=== PATIENT | female | born 1965 | race American Indian/Alaskan Native ===

== ENCOUNTER 2021-11-26 09:25 | Emergency (ER) | payer OTHER ==
[2021-11-26 09:35] VITALS: BP 151/95
--- NOTE | 2021-11-26 10:09 | XRay Report ---
CHEST 2 VIEWS INDICATION / CLINICAL INFORMATION: Cough, wheezing and chest pain. History of asthma. COMPARISON: None available. FINDINGS: SUPPORT DEVICES: None. HEART / MEDIASTINUM: The heart size and pulmonary vasculature are normal. LUNGS / PLEURA: There is mild localized subsegmental parenchymal disease in the inferior right upper lobe anteriorly. The lungs are otherwise clear. No pleural effusion. No pneumothorax. ADDITIONAL FINDINGS: There is a benign-appearing sclerotic density at the costovertebral junction of the left third rib. IMPRESSION: Subsegmental atelectasis in the inferior right upper lobe anteriorly. Signer Name: Ricardo Clark MD Signed: 11/26/2021 10:05 AM Workstation Name: [id number]
[2021-11-26 11:15] LABS: Alanine Aminotransferase 16 units/L (7-56); Albumin 4.6 g/dL (3.9-5); BUN/Creatinine Ratio 17; Blood Urea Nitrogen 15 mg/dL (7-17); Calcium 9.7 mg/dL (8.4-10.2); Hemolysis Index 2
[2021-11-26] MEDS ORDERED: IPRATROPIUM/ALBUTEROL SULFATE 3 ML AMPUL.NEB IH ONE ×2 (11:20→14:04)
[2021-11-26] MEDS ORDERED: predniSONE 20 MG TAB PO ONE ×2 (11:20→14:15)
--- NOTE | 2021-11-26 12:38 | Emergency Department Report ---
ED Shortness of Breath HPI - General Chief Complaint: Adult Asthma Stated Complaint: ASTHMA/CP/SWOLLEN FEET Source: patient Mode of arrival: Ambulatory Limitations: No Limitations - History of Present Illness Initial Comments: Patient is a 56-year-old -Serbian female with a history of hypertension and asthma who presents to the ED with complaint of acute onset persistent shortness of breath, persistent dry cough and wheezing for the last 1 week, worse in the last 3 days. Patient states that she has been using her albuterol inhaler at home with no relief. Patient also complains of nontraumatic left ankle and foot pain with mild swelling for the last 3 days. Patient states that she has a remote history of gout but unsure as to what the cause of the pain might be. Patient denies dizziness, syncope, chest pain, fever, chills, nausea and vomiting, abdominal pain, diarrhea, sore throat, change in vision, palpitations, traumatic injury, heavy lifting, back pain or headache. MD Complaint: shortness of breath, cough, "asthma attack" -: Sudden, week(s) (1) Severity: moderate Pain Scale: 5 Quality: dull, other (Chest tightness) Consistency: intermittent Improves With: nothing Worsens With: nothing Known History Of: asthma Context: recent URI, allergen exposure, smoke/fume exposure Associated Symptoms: cough Treatments Prior to Arrival: bronchodilator - Related Data Home Oxygen Therapy: No Previous Rx's Medication Instructions Recorded Last Taken Type Penicillin Vk [Veetids TAB] 500 mg PO QID #40 tablet 01/29/15 Unknown Rx guaiFENesin/CODEINE [Robitussin AC] 5 ml PO Q6HR PRN #120 ml 01/29/15 Unknown Rx Albuterol Mdi (or & Nicu Only) 2 puff INHALATION Q6H PRN #1 inh 11/26/21 Unknown Rx [ProAir HFA Inhaler] Benzonatate [Tessalon Perles] 100 mg PO Q8HR #30 cap 11/26/21 Unknown Rx Doxycycline Hyclate 100 mg PO Q12H #20 cap 11/26/21 Unknown Rx Ibuprofen [Motrin 800 MG tab] 800 mg PO Q8HR PRN #30 tablet 11/26/21 Unknown Rx Montelukast [Singulair] 10 mg PO QPM #30 tablet 11/26/21 Unknown Rx Prednisone [predniSONE 10 mg 10 mg PO .TAPER #1 tab.ds.pk 11/26/21 Unknown Rx (6-Day Pack, 21 Tabs)] traMADoL [Ultram 50 MG tab] 50 mg PO Q6HR PRN #20 tablet 11/26/21 Unknown Rx Allergies Allergy/AdvReac Type Severity Reaction Status Date / Time No Known Allergies Allergy Unverified 01/29/15 10:49 ED Review of Systems ROS: Stated complaint: ASTHMA/CP/SWOLLEN FEET Other details as noted in HPI Constitutional: denies: chills, fever Eyes: denies: eye pain, eye discharge, vision change ENT: denies: ear pain, throat pain Respiratory: cough, shortness of breath, wheezing Cardiovascular: denies: chest pain, palpitations Endocrine: no symptoms reported Gastrointestinal: denies: abdominal pain, nausea, diarrhea Genitourinary: denies: urgency, dysuria, discharge Musculoskeletal: joint swelling, arthralgia (Left ankle and foot pain with swelling). denies: back pain Skin: denies: rash, lesions Neurological: denies: headache, weakness, paresthesias Psychiatric: denies: anxiety, depression Hematological/Lymphatic: denies: easy bleeding, easy bruising ED Past Medical Hx - Past Medical History Hx Hypertension: Yes Hx Asthma: Yes - Surgical History Additional Surgical History: x 1. gastric ulcer repair. D&C - Social History Smoking Status: Never Smoker Substance Use Type: None - Medications Home Medications: Home Medications Medication Instructions Recorded Confirmed Last Taken Type Penicillin Vk [Veetids TAB] 500 mg PO QID #40 tablet 01/29/15 Unknown Rx guaiFENesin/CODEINE [Robitussin AC] 5 ml PO Q6HR PRN #120 ml 01/29/15 Unknown Rx Albuterol Mdi (or & Nicu Only) 2 puff INHALATION Q6H PRN #1 inh 11/26/21 Unknown Rx [ProAir HFA Inhaler] Benzonatate [Tessalon Perles] 100 mg PO Q8HR #30 cap 11/26/21 Unknown Rx Doxycycline Hyclate 100 mg PO Q12H #20 cap 11/26/21 Unknown Rx Ibuprofen [Motrin 800 MG tab] 800 mg PO Q8HR PRN #30 tablet 11/26/21 Unknown Rx Montelukast [Singulair] 10 mg PO QPM #30 tablet 11/26/21 Unknown Rx Prednisone [predniSONE 10 mg 10 mg PO .TAPER #1 tab.ds.pk 11/26/21 Unknown Rx (6-Day Pack, 21 Tabs)] traMADoL [Ultram 50 MG tab] 50 mg PO Q6HR PRN #20 tablet 11/26/21 Unknown Rx ED Physical Exam - General Limitations: No Limitations General appearance: alert, in no apparent distress - Head Head exam: Present: atraumatic, normocephalic, normal inspection - Eye Eye exam: Present: normal appearance, PERRL, EOMI Pupils: Present: normal accommodation - ENT ENT exam: Present: normal exam, normal orophraynx, mucous membranes moist, TM's normal bilaterally, normal external ear exam - Neck Neck exam: Present: normal inspection, full ROM. Absent: tenderness - Respiratory Respiratory exam: Present: wheezes (Mildly diffuse coarse wheezes throughout). Absent: normal lung sounds bilaterally, respiratory distress, rales, rhonchi, stridor, chest wall tenderness, accessory muscle use, decreased breath sounds, prolonged expiratory - Cardiovascular Cardiovascular Exam: Present: regular rate, normal rhythm, normal heart sounds. Absent: systolic murmur, diastolic murmur, rubs, gallop - GI/Abdominal GI/Abdominal exam: Present: soft, normal bowel sounds. Absent: tenderness, guarding, rebound, hyperactive bowel sounds, hypoactive bowel sounds, organomegaly - Extremities Exam Extremities exam: Present: normal inspection, full ROM, tenderness (Palpable left ankle and foot tenderness with mild swelling), normal capillary refill, joint swelling - Back Exam Back exam: Present: normal inspection, full ROM. Absent: tenderness, CVA tenderness (R), CVA tenderness (L), muscle spasm, paraspinal tenderness, vertebral tenderness - Neurological Exam Neurological exam: Present: alert, oriented X3, CN II-XII intact, normal gait, reflexes normal - Psychiatric Psychiatric exam: Present: normal affect, normal mood - Skin Skin exam: Present: warm, dry, intact, normal color. Absent: rash ED Course Vital Signs 11/26/21 09:30 Temperature 97.8 F Pulse Rate 75 Respiratory 20 Rate Blood Pressure 151/95 O2 Sat by Pulse 99 Oximetry ED Medical Decision Making - Lab Data Result diagrams: 11/26/21 09:55 - Radiology Data Radiology results: report reviewed, image reviewed [facility] [address] [place] [address] XRay Report Signed Patient: PABLO GONZALES MR#: [id number] 1 : 1965 Acct:[id number] Age/Sex: 56 / F ADM Date: 11/26/21 Loc: ED Attending Dr: Ordering Physician: DYLAN MEDINA MD Date of Service: 11/26/21 Procedure(s): XR chest routine 2V Accession Number(s): [id number] cc: DYLAN MEDINA MD Fluoro Time In Minutes: CHEST 2 VIEWS INDICATION / CLINICAL INFORMATION: Cough, wheezing and chest pain. History of asthma. COMPARISON: None available. FINDINGS: SUPPORT DEVICES: None. HEART / MEDIASTINUM: The heart size and pulmonary vasculature are normal. LUNGS / PLEURA: There is mild localized subsegmental parenchymal disease in the inferior right upper lobe anteriorly. The lungs are otherwise clear. No pleural effusion. No pneumothorax. ADDITIONAL FINDINGS: There is a benign-appearing sclerotic density at the costovertebral junction of the left third rib. IMPRESSION: Subsegmental atelectasis in the inferior right upper lobe anteriorly. Signer Name: Ricardo Clark MD Signed: 11/26/2021 10:05 AM Workstation Name: [id number] Transcribed By: RT Dictated By: Ricardo Clark MD Electronically Authenticated By: Ricardo Clark MD Signed Date/Time: 11/26/21 1005 DD/ 1002 TD/TT: - Medical Decision Making This is a 56-year-old -Serbian female with a history of hypertension and asthma who presents to the ED with complaint of acute onset persistent shortness of breath, persistent dry cough and wheezing for the last 1 week, worse in the last 3 days. Patient states that she has been using her albuterol inhaler at home with no relief. Patient also complains of nontraumatic left ankle and foot pain with mild swelling for the last 3 days. Patient states that she has a remote history of gout but unsure as to what the cause of the pain might be. In the ED, patient is alert and oriented x3 and is not in any distress. Patient's oxygen saturation is 99% on room air. Patient was treated in the ED with DuoNeb and oral prednisone 60 mg p.o. x1. Chest x-ray showed subsegmental atelectasis in the inferior right upper lobe anteriorly. On reevaluation, patient's wheezing resolved with medication. Patient was discharged home on medications and advised to follow-up with her primary care physician in 5 to 7 days for reevaluation or return to the ED immediately if symptoms get worse. - Differential Diagnosis Asthma; bronchitis; pneumonia; ankle sprain; URI; foot muscle strain Critical care attestation.: If time is entered above; I have spent that time in minutes in the direct care of this critically ill patient, excluding procedure time. ED Disposition Clinical Impression: Shortness of breath Asthmatic bronchitis with acute exacerbation Qualifiers: Asthma severity: unspecified severity Asthma persistence: unspecified Qualified Code(s): J45.901 - Unspecified asthma with (acute) exacerbation Right upper lobe pneumonia Qualifiers: Pneumonia type: due to unspecified organism Qualified Code(s): J18.9 - Pneumonia, unspecified organism Sprain of left ankle Qualifiers: Encounter type: initial encounter Involved ligament of ankle: other ligament Qualified Code(s): S93.492A - Sprain of other ligament of left ankle, initial encounter Disposition: 01 HOME / SELF CARE / HOMELESS Is pt being admited?: No Does the pt Need Aspirin: No Condition: Stable Instructions: Bacterial Pneumonia (ED), Cough, Adult, [id number], Asthma, Adult, [id number], Shortness of Breath, Adult, [id number], Community- Acquired Pneumonia, Adult, [id number] Additional Instructions: Take medication with food, drink plenty fluids and follow-up with your primary care physician in 7 to 10 days for reevaluation. Return to the ED immediately if symptoms get worse. Prescriptions: Doxycycline Hyclate 100 mg PO Q12H #20 cap Ibuprofen [Motrin 800 MG tab] 800 mg PO Q8HR PRN #30 tablet PRN Reason: Pain Prednisone [predniSONE 10 mg (6-Day Pack, 21 Tabs)] 10 mg PO .TAPER #1 tab.ds.pk Albuterol Mdi (or & Nicu Only) [ProAir HFA Inhaler] 2 puff INHALATION Q6H PRN #1 inh PRN Reason: Wheezing Montelukast [Singulair] 10 mg PO QPM #30 tablet Benzonatate [Tessalon Perles] 100 mg PO Q8HR #30 cap traMADoL [Ultram 50 MG tab] 50 mg PO Q6HR PRN #20 tablet PRN Reason: Pain Referrals: [facility] [Provider Group] - 7-10 days Forms: Work/School Release Form(ED) Time of Disposition: 12:41 Print Language: MOROCC[place]
== END 2021-11-26 15:00 | disposition home or self-care (01) ==
LOC: ED 09:25
DX: R06.02 Shortness of breath (principal); J45.901 Unspecified asthma with (acute) exacerbation; J18.9 Pneumonia, unspecified organism; S93.402A Sprain of unspecified ligament of left ankle, initial encounter; X58.XXXA Exposure to other specified factors, initial encounter; Y93.89 Activity, other specified; Y92.89 Other specified places as the place of occurrence of the external cause; Y99.8 Other external cause status
CPT/HCPCS: 36415; 71046; 80048; 80053; 99283